=== PATIENT | female | born 1955 | race Caucasian/White ===

== ENCOUNTER 2021-09-15 11:25 | Day surgery (SDC) | payer MEDICARE ==
[2021-09-15] VITALS (9 sets, daily range): BP systolic 130–149; BP diastolic 63–78
[~2021-09-15] VITALS: Ht 162.6 cm; Wt 88.9 kg
[2021-09-15] MEDS ORDERED: normal saline 1,000 ML IV SCH (11:55)
[2021-09-15] MEDS ORDERED: diphenhydrAMINE 25mg capsule PO PRN (11:55)
[2021-09-15] MEDS ORDERED: LORazepam 0.5 MG tablet PO PRN (11:55)
[2021-09-15] MEDS ORDERED: LEVO100T9 PO (12:42)
[2021-09-15] MEDS ORDERED: LOSA100T57 PO (12:42)
[2021-09-15] MEDS ORDERED: INSU200I SUBCUT (12:42)
[2021-09-15] MEDS ORDERED: INSU100V9 SQ (12:42)
[2021-09-15] MEDS ORDERED: ASPI81TA52 PO (12:42)
[2021-09-15] MEDS ORDERED: LIDOcaine 1%/PF 5ML 10 MG/ML VIAL ONE (13:46)
[2021-09-15] MEDS ORDERED: heparin 1,000unit/ml 10ml vial 10 ML ONE (13:46)
[2021-09-15] MEDS ORDERED: iohexol 350MG/ML 100ml bottle IV ONE (13:46)
[2021-09-15] MEDS ORDERED: nitroGLYCERIN-Tridil 50MG/D5W 250 ML IV ONE (13:46)
[2021-09-15] MEDS ORDERED: verapamil 2.5 mg/ml inj IV ONE (13:46)
[2021-09-15] MEDS ORDERED: midazolam 1 mg/ML 2ml injection ONE (14:23)
[2021-09-15] MEDS ORDERED: fentaNYL/PF 50MCG/1 ML 2ML syringe ONE (14:23)
== END 2021-09-15 17:50 | disposition home or self-care (01) ==
LOC: SSTAY O 11:25
PROVIDERS: ATTEND Student in an Organized Health Care Education/Training Program
DX: I25.10 Atherosclerotic heart disease of native coronary artery without angina pectoris (principal); I25.82 Chronic total occlusion of coronary artery; E78.5 Hyperlipidemia, unspecified; G47.33 Obstructive sleep apnea (adult) (pediatric); E11.22 Type 2 diabetes mellitus with diabetic chronic kidney disease; I12.9 Hypertensive chronic kidney disease with stage 1 through stage 4 chronic kidney disease, or unspecified chronic kidney disease; N18.9 Chronic kidney disease, unspecified; E03.9 Hypothyroidism, unspecified; Z88.1 Allergy status to other antibiotic agents; Z88.8 Allergy status to other drugs, medicaments and biological substances; Z79.82 Long term (current) use of aspirin; Z79.899 Other long term (current) drug therapy; Z98.890 Other specified postprocedural states
CPT/HCPCS: 93005; 93458; 99152; C1769; C1894; J1644; J2250; J3490; J7030; Q0163; Q9967; A4620; A5120; A6258; A6402; J3010